=== PATIENT | female | born 1960 | race Caucasian/White ===

== ENCOUNTER 2017-08-27 19:07 | Emergency (ER) | payer MEDICAID ==
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
== END 2017-08-27 19:47 ==
LOC: JD.ED 19:07
DX: F10.129 Alcohol abuse with intoxication, unspecified (principal); S00.81XA Abrasion of other part of head, initial encounter; F17.210 Nicotine dependence, cigarettes, uncomplicated; Y04.2XXA Assault by strike against or bumped into by another person, initial encounter
CPT/HCPCS: 99283

== ENCOUNTER 2018-02-25 23:45 | Emergency (ER) | payer SELFPAY ==
--- NOTE | 2018-02-26 03:50 | ER ---
REASON FOR EMERGENCY ROOM VISIT: Possible stroke. HISTORY OF PRESENT ILLNESS: This 57-year-old woman who apparently fell down this evening and friends found her in her home, unable to speak, with some drooping of her right face. Because of their concern that she may have had a stroke, they called the paramedics and a stroke alert was activated. Apparently, she had been drinking this morning before noon and her last well time was documented to be at approximately 11 to 11:30 a.m. this morning. She does apparently have a history of hypertension, but has not taken medications and in fact has expressed an aversion to seeing doctors in general. According to the patient's boyfriend and his sister, the patient does enjoy drinking alcohol, but drinks 1 or possibly 2 times per week on the average. She has no prior history of smoking. She has no prior history of cardiovascular disease or peripheral vascular disease. She is a nondiabetic. She has had no prior neurologic events. PAST MEDICAL HISTORY: 1. She has had a hysterectomy. 2. Frequent alcohol use. CURRENT MEDICATIONS: None. ALLERGIES: None. REVIEW OF SYSTEMS: Unable to obtain due to aphasia. PHYSICAL EXAMINATION: GENERAL: She is alert, but unable to speak. She is able to follow commands. VITAL SIGNS: Her blood pressure 154/76, heart rate 71, respiratory rate 11, O2 saturations 97% on room air. She is afebrile. HEENT: Head is normocephalic. Pupils equally round and reactive to light. Oropharynx is unremarkable. NECK: Supple. No JVD. No bruits could be heard. CHEST: Clear to auscultation. CARDIAC: Regular rate, without murmur. ABDOMEN: Soft and nontender. EXTREMITIES: No deformities. No edema. [place] and warm. Ankle pulses are present. NEUROLOGIC: She has right-sided facial weakness mainly affecting the lower facial muscles. She has pronounced expressive aphasia. With considerable struggling, she is able to mumble a few somewhat incoherent words. She is able to answer questions yes and no by nodding her head, and this was the main way of communicating with her. Muscle strength: She does not have any lateralizing muscle weakness in either of the upper or lower extremities that I can tell. It is difficult for her to follow commands. She seems to be somewhat weak bilaterally. EMERGENCY ROOM COURSE: Immediately upon arriving, we did an initial assessment. It was determined that her last well time was approximately 12 hours prior to her arrival in the emergency department. We nonetheless proceeded with a stat CT of her head, which disclosed an evolving left MCA infarct with thrombus visualized in the middle cerebral artery. This message was relayed to me by Dr. Cha, the radiologist. Her CBC was obtained and this was unremarkable. CMP was unremarkable as well. Coags are pending at the time of this dictation. Blood alcohol was 0.00. Because of the length of time this event started, I decided to contact the stroke neurologist at [facility] in [place]. I spoke to Dr. Murguia. The neurologist felt that he was definitely someone who might receive a patient who definitely would be amenable to interventional treatment for this. Obviously, too much time had elapsed for any thrombolytic therapy. I reviewed this. He agreed to take the patient in transfer and arrangements were made for her to be sent to [place] by air ambulance. She is aware of the risks in transfer as well as the risks of interventional treatment for this, but the potential benefits I outlined to her quite clearly as well. Her boyfriend was present, as was his sister. They are all in agreement to proceed with this recommendation. All questions were answered. BERNARDINO /[id number]
--- NOTE | 2018-02-26 04:32 | ER ---
REASON FOR EMERGENCY ROOM VISIT: Stroke. HISTORY OF PRESENT ILLNESS: This 57-year-old woman was brought in by ambulance after being called by her friends when she was found after having fallen at home and was unable to get up. They had noticed that she was unable to verbalize anything and was generally very weak with some noticeable right-sided drooping of her face. For this reason, the stroke code was activated and she was brought in to the emergency department. Her last known well time was 11:00 a.m. according to the patient's boyfriend and his sister. Prior to that, she had been drinking this morning. It is known that she said she has hypertension, but she does not take any medications. Her blood sugar in transport was 71 by Accu-Chek. The patient has no prior history of cerebrovascular, cardiovascular or peripheral vascular disease. PAST MEDICAL AND SURGICAL HISTORY: Significant for: 1. Hysterectomy. 2. Frequent alcohol use. ALLERGIES: None. CURRENT MEDICATIONS: None. REVIEW OF SYSTEMS: Unable to obtain due to severe expressive aphasia. SOCIAL HISTORY: She lives alone often with her boyfriend. He states she does not smoke. She drinks approximately once or twice a week. PHYSICAL EXAMINATION: GENERAL: She appears somewhat drowsy. VITAL SIGNS: Her blood pressure was initially 189/108, it is rechecked again, it is 154/76, and her O2 saturations were 96%. Heart rate is 59. She is afebrile. Respiratory rate is 11. HEENT: Head: Normocephalic. No evidence of trauma. Pupils equally round and reactive to light. Oropharynx is normal. NECK: No bruits could be heard. There is no JVD. CHEST: Clear to auscultation with good air exchange bilaterally. No wheezes, rhonchi, or rales. CARDIAC: Regular rate without murmur. ABDOMEN: Soft and nontender. EXTREMITIES: No edema. She has palpable ankle pulses. NEUROLOGIC: She has right-sided facial drooping, particularly the lower facial muscles. It is not extremely pronounced, but definitely there. She has extreme expressive aphasia, but is able to muster a few words and is able to nod yes or no and answer to questioning that she seems to focus appropriately. She does not show any asymmetry of muscle strength, but in no evidence of arm drift on testing. She is able to move all 4 extremities to command. COURSE IN THE EMERGENCY ROOM: Further Emergency Room Course: Routine labs including a CMP, CBC and coags were obtained. She was sent for a CT scan, Dr. Cha, of Radiology called and alerted me the fact that she had an evolving left MCA infarct with thrombus in the middle cerebral artery. I then called [facility] in [place] and spoke to Dr. Murguia, a Stroke Neurologist and described her history and reviewed everything with him. He agreed that she would be a candidate for interventional treatment even though it has been approximately 13 hours since her last well time. Arrangements were made for her to be taken by air ambulance to [facility]. I reviewed with the patient who seemed to be alert and understood the risks and goals to this approach. The patient's boyfriend also indicated that he was confident that she would agree to this. All questions were answered. BERNARDINO /[id number]
--- NOTE | 2018-02-26 08:19 | CT ---
Head CT Technique: Multiple axial sections through the brain were obtained. Intravenous contrast was not utilized. Comparison: No prior intracranial imaging. Findings: Ventricles along with basal cisterns and sulci over the convexities are within normal limits for the patient's age. Slightly hyperdense left middle cerebral artery is seen. Difficult to exclude thrombus. Vague low density is noted within the posterior left frontal and anterior temporal region. No other abnormal parenchymal densities are seen. No evidence of intracranial hemorrhage. No midline shift or mass effect is seen. Bone window settings were reviewed which show no acute calvarial abnormality. Visualized sinuses are clear. Impression: 1. Possible thrombus within the left middle cerebral artery. Questionable early infarct within the posterior left frontal and anterior temporal region. MRI with MR angiogram would confirm these findings if clinically needed. 2. No intracranial hemorrhage is seen. Diagnostic code #3 I agree with preliminary report from [facility], finalized on 02/26/19, 1:23 AM Central Time
--- NOTE | 2018-03-13 06:48 | ER ---
ADDENDUM: FINAL IMPRESSION: Evolving left hemisphere cerebrovascular accident. MMODAL /[id number]
== END 2018-02-26 01:13 ==
LOC: JD.ED 23:45
DX: I63.9 Cerebral infarction, unspecified (principal)
CPT/HCPCS: 36415; 70450; 80053; 82962; 85025; 85610; 85730; 93005; 99285; G0480

== ENCOUNTER 2018-08-20 12:01 | Emergency (ER) | payer MEDICAID ==
--- NOTE | 2018-08-20 12:42 | EDM.PDOC ---
ED HPI GENERAL MEDICAL PROBLEM - General Chief Complaint: General Stated Complaint: RECTAL PAIN Time Seen by Provider: 08/20/18 13:30 Source of Information: Reports: Patient, RN Notes Reviewed - History of Present Illness INITIAL COMMENTS - FREE TEXT/NARRATIVE: 57-year-old lady comes in with constipation. She states that she has been somewhat constipated for the past several days. She feels like she needs to have a BM but despite taking some make citrate this past morning and then even trying a fleets enema at home has been unable to pass what she feels is "stool in her rectum". No current abdominal pain. No nausea or vomiting. No recent fever or chills. Rectal Pain Score (Numeric/FACES): 4 - Related Data Allergies Allergy/AdvReac Type Severity Reaction Status Date / Time azithromycin [From Zithromax] Allergy Hives Verified 08/20/18 12:18 fluvastatin [From Lescol] Allergy Hives Verified 08/20/18 12:18 Home Meds: Home Meds . [Unable to Verify Home Med List] 08/20/18 [History] Past Medical History - Past Health History Medical/Surgical History: Denies Medical/Surgical History Cardiovascular History: Reports: High Cholesterol, Hypertension Neurological History: Reports: CVA - Past Surgical History Female Surgical History: Reports: Hysterectomy Social & Family History - Tobacco Use Smoking Status *Q: Unknown Ever Smoked - Caffeine Use Caffeine Use: Reports: Coffee, Tea - Living Situation & Occupation Living situation: Reports: with Significant Other (Boyfriend) ED ROS GENERAL - Review of Systems Review Of Systems: See Below Constitutional: Denies: Fever, Chills, Diaphoresis HEENT: Reports: No Symptoms Respiratory: Denies: Shortness of Breath Cardiovascular: Denies: Chest Pain GI/Abdominal: Reports: Other (She does feel rectal pressure, as though she does need to have a BM). Denies: Abdominal Pain, Diarrhea, Hematochezia, Melena, Nausea, Vomiting Musculoskeletal: Denies: Back Pain Skin: Reports: No Symptoms Neurological: Reports: No Symptoms ED EXAM, GENERAL - Physical Exam Exam: See Below General Appearance: Alert, No Apparent Distress Throat/Mouth: Normal Inspection, Normal Oropharynx Head: Atraumatic. No: Facial Swelling Neck: Supple, Full Range of Motion Respiratory/Chest: No Respiratory Distress, Lungs Clear, Normal Breath Sounds Cardiovascular: Regular Rate, Rhythm GI/Abdominal: Soft, Non-Tender. No: Guarding Rectal (Female) Exam: Other (Moderately large amount of hard stool upper rectum. No unusual mass or tenderness.) Back Exam: No: CVA Tenderness (L), CVA Tenderness (R) Extremities: Normal Inspection, Normal Range of Motion Neurological: Alert, Oriented, No Motor/Sensory Deficits Skin Exam: Warm, Dry, Normal Color Course - Vital Signs Last Recorded V/S: Last Vital Signs Temp 98.5 F 08/20/18 12:14 Pulse 88 08/20/18 12:14 Resp 18 08/20/18 12:14 BP 142/87 H 08/20/18 12:14 Pulse Ox 98 08/20/18 12:14 - Orders/Labs/Meds Meds: Medications Discontinued Medications Generic Name Dose Route Start Last Admin Trade Name Narendra PRN Reason Stop Dose Admin Lidocaine HCl 10 ml 08/20/18 13:43 08/20/18 13:56 Xylocaine 2% Jelly MUCMEM 08/20/18 13:44 10 ml ONETIME ONE Administration - Re-Assessments/Exams Free Text/Narrative Re-Assessment/Exam: 08/20/18 19:24 I did do a rectal exam. There was hard stool in the rectum as documented. Our nurse was able to break that up a bit not get much out manually. enema was given with good results. Discharge instructions as documented. Departure - Departure Time of Disposition: 14:21 Disposition: Home, Self-Care 01 Condition: Fair Clinical Impression: Constipation Qualifiers: Constipation type: unspecified constipation type Qualified Code(s): K59.00 - Constipation, unspecified - Discharge Information Instructions: Constipation, Adult, [id number] Referrals: Suyapa Amaya MD [Primary Care Provider] - Forms: ED Department Discharge Additional Instructions: Drink plenty of water to maintain hydration, stool softeners such as Pamela- Colace once or twice daily, you also can purchase "fiber pills" and take one daily as needed or take metamucil as needed, prunes or prune juice are good. Also MiraLAX once or twice daily is a good laxative to use as needed. Follow up clinic as needed, return to ED as needed if symptoms worsening in any way.
[2018-08-20] MEDS ORDERED: Lidocaine 2% Jelly 10 ML Urojet MUCMEM ONE (13:43)
== END 2018-08-20 14:30 | disposition home or self-care (01) ==
LOC: JD.ED 12:01
DX: K59.00 Constipation, unspecified (principal); I10 Essential (primary) hypertension; E78.00 Pure hypercholesterolemia, unspecified; Z86.73 Personal history of transient ischemic attack (TIA), and cerebral infarction without residual deficits; Z88.1 Allergy status to other antibiotic agents; Z88.8 Allergy status to other drugs, medicaments and biological substances
CPT/HCPCS: 99282; 99283

== ENCOUNTER 2019-02-01 10:50 | Emergency (ER) | payer MEDICAID ==
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
== END 2019-02-01 11:33 ==
LOC: JD.ED 10:50
DX: F10.120 Alcohol abuse with intoxication, uncomplicated (principal); I10 Essential (primary) hypertension; Z86.73 Personal history of transient ischemic attack (TIA), and cerebral infarction without residual deficits; Z88.1 Allergy status to other antibiotic agents; Z88.8 Allergy status to other drugs, medicaments and biological substances
CPT/HCPCS: 99282; 99283

== ENCOUNTER 2022-12-31 23:10 | Emergency (ER) | payer MEDICARE, MEDICAID ==
[2022-12-31] MEDS ORDERED: Sodium Chloride 0.9% 10 ML Syringe FLUSH PRN (23:33)
[2022-12-31 23:56] LABS: BASOPHILS PERCENT AUTO 0.3 % (0.0-1.0); EOSINOPHILS PERCENT AUTO 0.2 % (0.0-6.0); HEMATOCRIT 40.2 % (37.0-47.0); HEMOGLOBIN 14.3 gm/dl (12.0-16.0); IMMATURE GRAN ABSOLUTE AUTO 0.03 K/mm3 (0.00-0.05); IMMATURE GRAN PERCENT AUTO 0.3 % (0.0-0.4); LYMPHOCYTES ABSOLUTE AUTO 1.7 K/mm3 (1.0-4.8); LYMPHOCYTES PERCENT AUTO 19.4 % (24.0-44.0); MEAN CORPUSCULAR HEMOGLOBIN 32.4 pg (28.0-32.0); MEAN CORPUSCULAR HGB CONC 35.6 g/dl (32.0-36.0); MEAN PLATELET VOLUME 9.2 fl (9.4-12.3); MONOCYTES ABSOLUTE AUTO 0.9 K/mm3 (0.0-0.8); MONOCYTES PERCENT AUTO 10.1 % (0.0-8.0); NEUTROPHILS PERCENT AUTO 69.7 % (41.0-71.0); PLATELET COUNT,PLT 254 K/mm3 (150-400); RED BLOOD CELL COUNT 4.42 M/mm3 (4.10-5.30); WHITE BLOOD CELL COUNT,WBC 8.69 K/mm3 (3.9-11.3)
[2023-01-01 00:10] LABS: APPEARANCE,URINE CLEAR (Clear); BILIRUBIN,URINE 1+ (Negative); COLOR,URINE AMBER (Yellow); GLUCOSE,URINE NEGATIVE (Negative); KETONES,URINE 4+ (Negative); LEUKOCYTE ESTERASE,URINE NEGATIVE (Negative); NITRITE,URINE POSITIVE (Negative); OCCULT BLOOD,URINE 1+ (Negative); PH,URINE 5.5 (5.0-8.0); PROTEIN,URINE 2+ (Negative)
[2023-01-01 00:18] LABS: A/G RATIO 0.9 (1-2); ALBUMIN 4.1 g/dl (3.4-5.0); ANION GAP 21.9 (5-15); BILIRUBIN TOTAL 1.2 mg/dL (0.2-1.0); CALCIUM 10.5 mg/dL (8.5-10.1); CREATININE 0.9 mg/dL (0.55-1.02); EST CRCL DRUG DOSING (CG) 58.32 mL/min; MAGNESIUM 1.5 mg/dL (1.8-2.4); POTASSIUM,K 2.9 mEq/L (3.5-5.1); PROTEIN TOTAL,TP 8.6 g/dl (6.4-8.2)
[2023-01-01 00:21] LABS: BARBITURATE SCREEN,URINE NEGATIVE (CUTOFF=200); BENZODIAZEPINES SCREEN,URINE NEGATIVE (CUTOFF=150); BUPRENORPHINE SCREEN,URINE NEGATIVE (CUTOFF=10); METHADONE SCREEN, URINE NEGATIVE (CUTOFF=200); METHAMPHETAMINES SCREEN, URINE PRESUMPTIVE POSITIVE (CUTOFF=500); OXYCODONE SCREEN,URINE NEGATIVE (CUT0FF=100); THC SCREEN,URINE 20 NG/ML NEGATIVE (CUTOFF=50)
[2023-01-01 00:22] LABS: AMPHETAMINES SCREEN, URINE PRESUMPTIVE POSITIVE (CUTOFF=500)
[2023-01-01 00:23] LABS: BACTERIA,URINE MANY /hpf (FEW); HYALINE CASTS,URINE 30-40 /lpf (0-5); MUCUS,URINE NOT SEEN /hpf (FEW); RBC,URINE 0-5 /hpf (0-5); SQUAMOUS EPITHELIAL CELLS,UR 0-5 /hpf (0-5)
[2023-01-01] MEDS ORDERED: cefTRIAXone 1 GM in Sodium Chloride 0.9% 100 ML IV ONE (00:31)
[2023-01-01] MEDS ORDERED: Potassium Chloride 20 MEQ Tab.ER PO ONE (00:31)
[2023-01-01] MEDS ORDERED: Sodium Chloride 0.9% 500 ML IV ONE (00:33)
[2023-01-01] MEDS ORDERED: NS + KCl 20mEq/L 1,000 ML IV SCH (00:45)
== END 2023-01-01 07:50 | disposition home or self-care (01) ==
LOC: JD.ED 23:10
DX: R41.82 Altered mental status, unspecified (principal); F15.10 Other stimulant abuse, uncomplicated; F11.90 Opioid use, unspecified, uncomplicated; I67.2 Cerebral atherosclerosis; N30.00 Acute cystitis without hematuria; I10 Essential (primary) hypertension; E78.00 Pure hypercholesterolemia, unspecified; Z86.73 Personal history of transient ischemic attack (TIA), and cerebral infarction without residual deficits; Z90.710 Acquired absence of both cervix and uterus; Z88.1 Allergy status to other antibiotic agents; Z88.8 Allergy status to other drugs, medicaments and biological substances
CPT/HCPCS: 36415; 70450; 71046; 80053; 80306; 80307; 81001; 83605; 83735; 85025; 93005; 96365; 96366; 96368; 99285; A9270; J0696; J3475; J3480; J3490; J7030; 93010; 99283

== ENCOUNTER 2023-01-01 11:46 | Emergency (ER) | payer MEDICARE, MEDICAID ==
[2023-01-01] MEDS ORDERED: Dextrose 5%-Lactated Ringers 1,000 ML IV SCH (12:30)
[2023-01-01] MEDS: Potassium Chloride 10 MEQ in Premix Bag 1 BAG IV SCH ×6 (12:56→17:34)
[2023-01-01] MEDS ORDERED: Metoclopramide 10 MG/2 ML SDV IVPUSH ONE (13:04)
[2023-01-01 13:09] LABS: A/G RATIO 0.9 (1-2); ALBUMIN 3.3 g/dl (3.4-5.0); BILIRUBIN TOTAL 0.9 mg/dL (0.2-1.0); BUN/CREATININE RATIO 41.3 (14-18); CALCIUM 8.9 mg/dL (8.5-10.1); CREATININE 0.8 mg/dL (0.55-1.02); EST CRCL DRUG DOSING (CG) 57.67 mL/min; PROTEIN TOTAL,TP 7.2 g/dl (6.4-8.2)
[2023-01-01] MEDS ORDERED: Lactated Ringers 1,000 ML IV SCH ×2 (15:15→20:15)
[2023-01-01] MEDS ORDERED: Magnesium Sulfate/Water 4 GM in Premix Bag 1 BAG IV ONE (15:41)
[2023-01-01 18:55] LABS: BARBITURATE SCREEN,URINE NEGATIVE (CUTOFF=200); BENZODIAZEPINES SCREEN,URINE NEGATIVE (CUTOFF=150); BUPRENORPHINE SCREEN,URINE NEGATIVE (CUTOFF=10); METHADONE SCREEN, URINE NEGATIVE (CUTOFF=200); METHAMPHETAMINES SCREEN, URINE PRESUMPTIVE POSITIVE (CUTOFF=500); OXYCODONE SCREEN,URINE NEGATIVE (CUT0FF=100); THC SCREEN,URINE 20 NG/ML NEGATIVE (CUTOFF=50)
[2023-01-01 18:59] LABS: AMPHETAMINES SCREEN, URINE PRESUMPTIVE POSITIVE (CUTOFF=500)
[2023-01-01] MEDS ORDERED: cefTRIAXone 1 GM Vial IM ONE (22:47)
[2023-01-01] MEDS ORDERED: Lidocaine 1% 10 ML MDV INJECT ONE (23:15)
[2023-01-01] MEDS ORDERED: Lidocaine 1% 10 ML MDV ONE (23:15)
== END 2023-01-01 23:30 | disposition home or self-care (01) ==
LOC: JD.ED 11:46
DX: F15.10 Other stimulant abuse, uncomplicated (principal); E83.42 Hypomagnesemia; E87.6 Hypokalemia; E87.29 Other acidosis; I10 Essential (primary) hypertension; Z86.73 Personal history of transient ischemic attack (TIA), and cerebral infarction without residual deficits; Z88.1 Allergy status to other antibiotic agents; Z88.8 Allergy status to other drugs, medicaments and biological substances
CPT/HCPCS: 36415; 80053; 80306; 80307; 82009; 83735; 93005; 96361; 96365; 96366; 96372; 96375; 99285; J0696; J2765; J3475; J3480; J7120; J7121; J3490

== ENCOUNTER 2023-01-02 16:08 | Emergency (ER) | payer MEDICARE, MEDICAID ==
[2023-01-02] MEDS ORDERED: Sodium Chloride 0.9% 10 ML Syringe FLUSH PRN (16:42)
[2023-01-02 18:01] LABS: BASOPHILS PERCENT AUTO 0.3 % (0.0-1.0); EOSINOPHILS ABSOLUTE AUTO 0.1 K/mm3 (0.0-0.4); HEMATOCRIT 31.4 % (37.0-47.0); IMMATURE GRAN ABSOLUTE AUTO 0.02 K/mm3 (0.00-0.05); IMMATURE GRAN PERCENT AUTO 0.3 % (0.0-0.4); LYMPHOCYTES ABSOLUTE AUTO 1.6 K/mm3 (1.0-4.8); LYMPHOCYTES PERCENT AUTO 22.9 % (24.0-44.0); MEAN CORPUSCULAR HEMOGLOBIN 32.5 pg (28.0-32.0); MEAN CORPUSCULAR VOLUME 92.9 fl (83.0-99.0); MEAN PLATELET VOLUME 9.8 fl (9.4-12.3); MONOCYTES PERCENT AUTO 15.2 % (0.0-8.0); NEUTROPHILS ABSOLUTE AUTO 4.1 K/mm3 (1.8-7.7); NEUTROPHILS PERCENT AUTO 60.3 % (41.0-71.0); PLATELET COUNT,PLT 239 K/mm3 (150-400); RED BLOOD CELL COUNT 3.38 M/mm3 (4.10-5.30); WHITE BLOOD CELL COUNT,WBC 6.85 K/mm3 (3.9-11.3)
[2023-01-02] MEDS ORDERED: Sodium Chloride 0.9% 1,000 ML IV ONE (18:20)
[2023-01-02 18:25] LABS: A/G RATIO 0.9 (1-2); ALBUMIN 3.2 g/dl (3.4-5.0); ANION GAP 15.9 (5-15); BILIRUBIN TOTAL 0.3 mg/dL (0.2-1.0); BUN/CREATININE RATIO 21.3 (14-18); C-REACTIVE PROTEIN 2.3 mg/dL (<1.0); CALCIUM 8.8 mg/dL (8.5-10.1); CREATININE 0.8 mg/dL (0.55-1.02); EST CRCL DRUG DOSING (CG) 66.93 mL/min; MAGNESIUM 1.3 mg/dL (1.8-2.4); POTASSIUM,K 2.9 mEq/L (3.5-5.1); PROTEIN TOTAL,TP 6.9 g/dl (6.4-8.2); TSH 0.982 uIU/mL (0.358-3.74)
[2023-01-02 18:34] LABS: APPEARANCE,URINE CLEAR (Clear); BILIRUBIN,URINE NEGATIVE (Negative); COLOR,URINE YELLOW (Yellow); GLUCOSE,URINE TRACE (Negative); KETONES,URINE NEGATIVE (Negative); LEUKOCYTE ESTERASE,URINE TRACE (Negative); NITRITE,URINE NEGATIVE (Negative); OCCULT BLOOD,URINE NEGATIVE (Negative); PROTEIN,URINE NEGATIVE (Negative); UROBILINOGEN,URINE 0.2 (0.2-1.0)
[2023-01-02 18:39] LABS: BARBITURATE SCREEN,URINE NEGATIVE (CUTOFF=200); BENZODIAZEPINES SCREEN,URINE NEGATIVE (CUTOFF=150); BUPRENORPHINE SCREEN,URINE NEGATIVE (CUTOFF=10); METHADONE SCREEN, URINE NEGATIVE (CUTOFF=200); METHAMPHETAMINES SCREEN, URINE PRESUMPTIVE POSITIVE (CUTOFF=500); OXYCODONE SCREEN,URINE NEGATIVE (CUT0FF=100); THC SCREEN,URINE 20 NG/ML NEGATIVE (CUTOFF=50)
[2023-01-02 18:59] LABS: AMPHETAMINES SCREEN, URINE PRESUMPTIVE POSITIVE (CUTOFF=500)
[2023-01-02 19:07] LABS: RBC,URINE 0-5 /hpf (0-5)
[2023-01-02 19:08] LABS: BACTERIA,URINE FEW /hpf (FEW); MUCUS,URINE FEW /hpf (FEW)
[2023-01-02] MEDS ORDERED: Potassium Chloride 20 MEQ Tab.ER PO ONE (19:15)
[2023-01-02] MEDS ORDERED: Magnesium Oxide 400 MG Tab PO ONE (19:16)
[2023-01-02] MEDS ORDERED: Lactated Ringers 1,000 ML IV ONE (19:29)
[2023-01-03] MEDS ORDERED: cefTRIAXone 1 GM in Sodium Chloride 0.9% 100 ML IV ONE (07:13)
== END 2023-01-03 17:00 | disposition home or self-care (01) ==
LOC: JD.ED 16:08
DX: F15.10 Other stimulant abuse, uncomplicated (principal); N30.00 Acute cystitis without hematuria; I10 Essential (primary) hypertension; Z86.73 Personal history of transient ischemic attack (TIA), and cerebral infarction without residual deficits; Z88.1 Allergy status to other antibiotic agents; Z88.8 Allergy status to other drugs, medicaments and biological substances
CPT/HCPCS: 36415; 70450; 80053; 80306; 80307; 81001; 83605; 83690; 83735; 84443; 84484; 85025; 86140; 93005; 96361; 96365; 99285; A9270; J0696; J3490; J7030; J7120; 93010; 99283

== ENCOUNTER 2023-01-03 21:41 | Emergency (ER) | payer MEDICARE, MEDICAID ==
[2023-01-03 23:21] LABS: APPEARANCE,URINE CLEAR (Clear); BILIRUBIN,URINE NEGATIVE (Negative); COLOR,URINE LIGHT YELLOW (Yellow); GLUCOSE,URINE TRACE (Negative); KETONES,URINE NEGATIVE (Negative); LEUKOCYTE ESTERASE,URINE NEGATIVE (Negative); NITRITE,URINE NEGATIVE (Negative); OCCULT BLOOD,URINE NEGATIVE (Negative); PROTEIN,URINE NEGATIVE (Negative); UROBILINOGEN,URINE 0.2 (0.2-1.0)
[2023-01-03 23:30] LABS: BARBITURATE SCREEN,URINE NEGATIVE (CUTOFF=200); BENZODIAZEPINES SCREEN,URINE NEGATIVE (CUTOFF=150); BUPRENORPHINE SCREEN,URINE NEGATIVE (CUTOFF=10); METHADONE SCREEN, URINE NEGATIVE (CUTOFF=200); METHAMPHETAMINES SCREEN, URINE NEGATIVE (CUTOFF=500); OXYCODONE SCREEN,URINE NEGATIVE (CUT0FF=100); THC SCREEN,URINE 20 NG/ML NEGATIVE (CUTOFF=50)
[2023-01-03 23:32] LABS: AMPHETAMINES SCREEN, URINE NEGATIVE (CUTOFF=500)
[2023-01-03 23:34] LABS: BACTERIA,URINE FEW /hpf (FEW); MUCUS,URINE FEW /hpf (FEW); RBC,URINE 0-5 /hpf (0-5); SQUAMOUS EPITHELIAL CELLS,UR 0-5 /hpf (0-5); WBC,URINE 0-5 /hpf (0-5)
[2023-01-04] MEDS ORDERED: Folic Acid 1 MG Tab PO ONE (10:05)
[2023-01-04] MEDS ORDERED: LORazepam 0.5 MG Tab PO ONE (10:05)
[2023-01-04] MEDS ORDERED: Thiamine 100 MG Tab PO ONE (10:05)
[2023-01-04] MEDS ORDERED: Cholecalciferol (Vitamin D3) 5,000 UNIT Cap PO ONE (10:06)
[2023-01-04] MEDS ORDERED: Haloperidol 1 MG Tab PO ONE (10:06)
== END 2023-01-04 11:40 | disposition home or self-care (01) ==
LOC: JD.ED 21:41
DX: F15.10 Other stimulant abuse, uncomplicated (principal); I69.320 Aphasia following cerebral infarction; I10 Essential (primary) hypertension; E78.00 Pure hypercholesterolemia, unspecified; Z79.899 Other long term (current) drug therapy; Z88.0 Allergy status to penicillin; Z88.8 Allergy status to other drugs, medicaments and biological substances
CPT/HCPCS: 80306; 81001; 99284; A9270; 96365; 99283; J0696; J3490

== ENCOUNTER 2023-01-12 11:29 | Emergency (ER) | payer MEDICARE, MEDICAID ==
[2023-01-12] MEDS ORDERED: Sodium Chloride 0.9% 10 ML Syringe FLUSH PRN (12:00)
[2023-01-12] MEDS ORDERED: Lactated Ringers 1,000 ML IV SCH (12:15)
[2023-01-12 12:42] LABS: BASOPHILS PERCENT AUTO 0.3 % (0.0-1.0); EOSINOPHILS ABSOLUTE AUTO 0.1 K/mm3 (0.0-0.4); EOSINOPHILS PERCENT AUTO 0.9 % (0.0-6.0); IMMATURE GRAN ABSOLUTE AUTO 0.02 K/mm3 (0.00-0.05); IMMATURE GRAN PERCENT AUTO 0.3 % (0.0-0.4); LYMPHOCYTES ABSOLUTE AUTO 1.4 K/mm3 (1.0-4.8); LYMPHOCYTES PERCENT AUTO 20.6 % (24.0-44.0); MEAN CORPUSCULAR HEMOGLOBIN 32.3 pg (28.0-32.0); MEAN CORPUSCULAR HGB CONC 33.3 g/dl (32.0-36.0); MEAN PLATELET VOLUME 8.4 fl (9.4-12.3); MONOCYTES ABSOLUTE AUTO 0.9 K/mm3 (0.0-0.8); MONOCYTES PERCENT AUTO 13.3 % (0.0-8.0); NEUTROPHILS ABSOLUTE AUTO 4.4 K/mm3 (1.8-7.7); NEUTROPHILS PERCENT AUTO 64.6 % (41.0-71.0); PLATELET COUNT,PLT 496 K/mm3 (150-400); RED BLOOD CELL COUNT 3.71 M/mm3 (4.10-5.30); WHITE BLOOD CELL COUNT,WBC 6.76 K/mm3 (3.9-11.3)
[2023-01-12 13:03] LABS: ALBUMIN 3.9 g/dl (3.4-5.0); ANION GAP 14.4 (5-15); BILIRUBIN TOTAL 0.8 mg/dL (0.2-1.0); BUN/CREATININE RATIO 23.6 (14-18); CALCIUM 9.8 mg/dL (8.5-10.1); CREATININE 1.1 mg/dL (0.55-1.02); EST CRCL DRUG DOSING (CG) 47.72 mL/min; POTASSIUM,K 3.4 mEq/L (3.5-5.1)
[2023-01-12 15:07] LABS: APPEARANCE,URINE CLEAR (Clear); BILIRUBIN,URINE NEGATIVE (Negative); COLOR,URINE YELLOW (Yellow); GLUCOSE,URINE NEGATIVE (Negative); KETONES,URINE NEGATIVE (Negative); LEUKOCYTE ESTERASE,URINE NEGATIVE (Negative); NITRITE,URINE NEGATIVE (Negative); OCCULT BLOOD,URINE NEGATIVE (Negative); PH,URINE 7.5 (5.0-8.0); PROTEIN,URINE NEGATIVE (Negative); UROBILINOGEN,URINE 0.2 (0.2-1.0)
[2023-01-12 15:19] LABS: BARBITURATE SCREEN,URINE NEGATIVE (CUTOFF=200); BENZODIAZEPINES SCREEN,URINE NEGATIVE (CUTOFF=150); BUPRENORPHINE SCREEN,URINE NEGATIVE (CUTOFF=10); METHADONE SCREEN, URINE NEGATIVE (CUTOFF=200); METHAMPHETAMINES SCREEN, URINE PRESUMPTIVE POSITIVE (CUTOFF=500); OXYCODONE SCREEN,URINE NEGATIVE (CUT0FF=100); THC SCREEN,URINE 20 NG/ML NEGATIVE (CUTOFF=50)
[2023-01-12 15:22] LABS: AMPHETAMINES SCREEN, URINE PRESUMPTIVE POSITIVE (CUTOFF=500)
== END 2023-01-12 18:10 | disposition home or self-care (01) ==
LOC: JD.ED 11:29
DX: F15.10 Other stimulant abuse, uncomplicated (principal); I69.320 Aphasia following cerebral infarction; F17.210 Nicotine dependence, cigarettes, uncomplicated; I10 Essential (primary) hypertension; E78.00 Pure hypercholesterolemia, unspecified; Z88.8 Allergy status to other drugs, medicaments and biological substances; Z88.1 Allergy status to other antibiotic agents
CPT/HCPCS: 36415; 70450; 80053; 80306; 80307; 81003; 85025; 96360; 99285; J7120

== ENCOUNTER 2023-09-13 09:21 | Day surgery (SDC) | payer MEDICARE, MEDICAID ==
[~2023-09-13 09:21] MED LIST: Sodium Chloride 0.9% 10 ML Syringe FLUSH PRN; Sodium Chloride 0.9% 10 ML Syringe FLUSH SCH
[2023-09-13] MEDS: Lactated Ringers 1,000 ML IV SCH (09:45)
[2023-09-13] MEDS ORDERED: Propofol 200 MG/20 ML SDV ONE (10:50)
== END 2023-09-13 12:15 | disposition home or self-care (01) ==
LOC: JD.SDS 09:21
PROVIDERS: ATTEND Surgery
DX: K22.70 Barrett's esophagus without dysplasia (principal); K21.00 Gastro-esophageal reflux disease with esophagitis, without bleeding; Q39.8 Other congenital malformations of esophagus; K44.9 Diaphragmatic hernia without obstruction or gangrene; I10 Essential (primary) hypertension; E78.00 Pure hypercholesterolemia, unspecified; Z79.82 Long term (current) use of aspirin; Z79.899 Other long term (current) drug therapy; Z88.1 Allergy status to other antibiotic agents; Z88.8 Allergy status to other drugs, medicaments and biological substances
CPT/HCPCS: 43239; J2704; J7120; 00731; 88305

== ENCOUNTER 2024-01-18 07:30 | Day surgery (SDC) | payer MEDICARE, MEDICAID ==
[2024-01-18] MEDS: Polymyxin B/Trimethoprim 10 ML Bottle EYERT SCH (07:36)
[2024-01-18] MEDS: Brimonidine 0.2% Ophth Soln 5 ML Bottle EYERT SCH (07:41)
[2024-01-18] MEDS: Phenylephrine 2.5% Ophth Soln 2 ML Bot EYERT SCH (07:45)
[2024-01-18] MEDS: Tropicamide 1% Ophth Soln 3 ML Bottle EYERT SCH (07:48)
[2024-01-18] MEDS: Tetracaine HCl/PF 0.5% 4 ML Bottle EYEBOTH SCH (09:14)
[2024-01-18] MEDS: Lidocaine 1% PF 2 ML SDV INJECT SCH (09:32)
[2024-01-18] MEDS: Cefuroxime 10 MG/ML SYRINGE EYERT SCH (09:44)
[2024-01-18] MEDS: Pilocarpine 4% Ophth Soln 15 ML Bot EYERT SCH (09:45)
== END 2024-01-18 09:54 | disposition home or self-care (01) ==
LOC: JD.SDS 07:30
PROVIDERS: ATTEND Ophthalmology
DX: H25.813 Combined forms of age-related cataract, bilateral (principal); H21.81 Floppy iris syndrome; H21.41 Pupillary membranes, right eye; I10 Essential (primary) hypertension; E78.2 Mixed hyperlipidemia
CPT/HCPCS: 66982; A9270; J0697; J3490; V2632

== ENCOUNTER 2024-02-15 09:53 | Day surgery (SDC) | payer MEDICARE, MEDICAID ==
[2024-02-15] MEDS: Polymyxin B/Trimethoprim 10 ML Bottle EYELF SCH (11:01)
[2024-02-15] MEDS: Brimonidine 0.2% Ophth Soln 5 ML Bottle EYELF SCH (11:10)
[2024-02-15] MEDS: Phenylephrine 2.5% Ophth Soln 2 ML Bot EYELF SCH (11:14)
[2024-02-15] MEDS: Tropicamide 1% Ophth Soln 3 ML Bottle EYELF SCH (11:18)
[2024-02-15] MEDS: Tetracaine HCl/PF 0.5% 4 ML Bottle EYEBOTH SCH (12:14)
[2024-02-15] MEDS: Lidocaine 1% PF 2 ML SDV INJECT SCH (12:35)
[2024-02-15] MEDS: Cefuroxime 10 MG/ML SYRINGE EYELF SCH (12:50)
[2024-02-15] MEDS: Pilocarpine 4% Ophth Soln 15 ML Bot EYELF SCH (12:51)
== END 2024-02-15 13:05 | disposition home or self-care (01) ==
LOC: JD.SDS 09:53
PROVIDERS: ATTEND Ophthalmology
DX: H25.812 Combined forms of age-related cataract, left eye (principal); H21.42 Pupillary membranes, left eye; H21.81 Floppy iris syndrome; H52.31 Anisometropia; H11.823 Conjunctivochalasis, bilateral; I10 Essential (primary) hypertension; E78.2 Mixed hyperlipidemia; Z79.899 Other long term (current) drug therapy; Z88.1 Allergy status to other antibiotic agents
CPT/HCPCS: 66982; A9270; J0697; 00142; J3490; V2632

== ENCOUNTER 2024-04-12 12:16 | Emergency (ER) | payer MEDICARE, MEDICAID ==
[2024-04-12] MEDS ORDERED: Sodium Chloride 0.9% 10 ML Syringe FLUSH PRN (12:45)
[2024-04-12] MEDS: Lactated Ringers 1,000 ML IV SCH (13:27)
[2024-04-12] MEDS: HYDROmorphone 0.5 MG/0.5 ML Syringe IVPUSH ONE (13:27)
[2024-04-12] MEDS: Ondansetron 4 MG/2 ML SDV IVPUSH ONE (13:27)
[2024-04-12 13:50] LABS: BASOPHILS PERCENT AUTO 0.4 % (0.0-1.0); EOSINOPHILS PERCENT AUTO 0.1 % (0.0-6.0); HEMATOCRIT 38.7 % (37.0-47.0); HEMOGLOBIN 13.4 gm/dl (12.0-16.0); IMMATURE GRAN ABSOLUTE AUTO 0.05 K/mm3 (0.00-0.05); IMMATURE GRAN PERCENT AUTO 0.6 % (0.0-0.4); LYMPHOCYTES ABSOLUTE AUTO 1.7 K/mm3 (1.0-4.8); MEAN CORPUSCULAR HEMOGLOBIN 30.9 pg (28.0-32.0); MEAN CORPUSCULAR HGB CONC 34.6 g/dl (32.0-36.0); MEAN PLATELET VOLUME 8.6 fl (9.4-12.3); MONOCYTES ABSOLUTE AUTO 0.9 K/mm3 (0.0-0.8); MONOCYTES PERCENT AUTO 10.9 % (0.0-8.0); NEUTROPHILS ABSOLUTE AUTO 5.3 K/mm3 (1.8-7.7); RED BLOOD CELL COUNT 4.33 M/mm3 (4.10-5.30); WHITE BLOOD CELL COUNT,WBC 7.91 K/mm3 (3.9-11.3)
[2024-04-12 14:00] LABS: APPEARANCE,URINE CLEAR (Clear); BILIRUBIN,URINE NEGATIVE (Negative); COLOR,URINE YELLOW (Yellow); GLUCOSE,URINE NEGATIVE (Negative); KETONES,URINE NEGATIVE (Negative); LEUKOCYTE ESTERASE,URINE NEGATIVE (Negative); NITRITE,URINE NEGATIVE (Negative); OCCULT BLOOD,URINE NEGATIVE (Negative); PH,URINE >=9.0 (5.0-8.0); PROTEIN,URINE 2+ (Negative); UROBILINOGEN,URINE 0.2 (0.2-1.0)
[2024-04-12 14:00] LABS: MEAN CORPUSCULAR VOLUME 89.4 fl (83.0-99.0); PLATELET COUNT,PLT 371 K/mm3 (150-400)
[2024-04-12 14:04] LABS: ALBUMIN 4.1 g/dl (3.4-5.0); ANION GAP 11.3 (5-15); BILIRUBIN TOTAL 0.6 mg/dL (0.2-1.0); BUN/CREATININE RATIO 18.3 (14-18); CALCIUM 9.2 mg/dL (8.5-10.1); CREATININE 0.6 mg/dL (0.55-1.02); EST CRCL DRUG DOSING (CG) 82.87 mL/min; POTASSIUM,K 3.3 mEq/L (3.5-5.1); PROTEIN TOTAL,TP 8.2 g/dl (6.4-8.2)
[2024-04-12] MEDS: Iopamidol 612 MG/ML 100 ML Bottle IVPUSH ONE (14:18)
[2024-04-12] MEDS: Sodium Chloride 0.9% 10 ML Syringe FLUSH PRN (14:18)
[2024-04-12 14:19] LABS: RBC,URINE 0-5 /hpf (0-5); WBC,URINE 0-5 /hpf (0-5)
[2024-04-12 14:20] LABS: BACTERIA,URINE MANY /hpf (FEW); MUCUS,URINE FEW /hpf (FEW); SQUAMOUS EPITHELIAL CELLS,UR 0-5 /hpf (0-5)
== END 2024-04-12 15:16 | disposition home or self-care (01) ==
LOC: JD.ED 12:16
DX: A08.4 Viral intestinal infection, unspecified (principal); I10 Essential (primary) hypertension; E78.00 Pure hypercholesterolemia, unspecified; F17.210 Nicotine dependence, cigarettes, uncomplicated; Z86.73 Personal history of transient ischemic attack (TIA), and cerebral infarction without residual deficits; Z86.16 Personal history of COVID-19; Z90.710 Acquired absence of both cervix and uterus; Z88.1 Allergy status to other antibiotic agents; Z88.8 Allergy status to other drugs, medicaments and biological substances; Z79.82 Long term (current) use of aspirin; Z79.899 Other long term (current) drug therapy
CPT/HCPCS: 36415; 74177; 80053; 81001; 83690; 85025; 96361; 96374; 96375; 99284; J2405; J7120; Q9967